=== PATIENT | male | born 1975 | race African-American/Black ===

== ENCOUNTER 2016-03-24 16:05 | Emergency (ER) | payer OTHER ==
[2016-03-24 16:09] VITALS: BP 124/66; PULSE 92; RESP 16; TEMP 101.6; O2SAT 93
[2016-03-24] MEDS ORDERED: IBUPROFEN 800 MG TAB PO ONE (18:00)
--- NOTE | 2016-03-24 18:04 | PD ---
HPI Chief Complaint: Cold / Flu Symptoms Time Seen by Provider: 18:02 Travel History International Travel<30 days: No Contact w/Intl Traveler<30days: No Traveled to known affect area: No History of Present Illness HPI Patient is a 40-year-old male who presented to return for evaluation of a cough. Patient states his symptoms started on Tuesday, he reports fatigue denies sweats. He denies any shortness of breath or wheezing, no chest pain, no nausea, vomiting, no chest congestion, no nasal congestion. He denies any other complaints at this time. He has not taken any Tylenol or ibuprofen or [id number] therapies. [facility] Past Medical History Medical History: Denies Significant Hx Family History Family History: Negative Social History Alcohol Use: No Tobacco Use: No Substance Use: No Allergies-Medications (Allergen,Severity, Reaction): Coded Allergies: No Known Allergies (Unverified , 03/24/16) Reported Meds & Prescriptions Reported Meds & Active Scripts Active No Active Prescriptions or Reported Medications Review of Systems Except as stated in HPI: all other systems reviewed are Neg General / Constitutional: Positive: Fever Respiratory: Positive: Cough, Night Sweats Physical Exam Narrative GENERAL: Well-nourished, well-developed patient. SKIN: Warm and dry. HEAD: Normocephalic. ENT: Mucosa pink and moist. No erythema or exudates. No uvular edema. No uvular , palatal, or tonsillar deviation. Airway patent. Nasal turbinates appear normal without nasal blood, purulent drainage or septal hematoma. EYES: No scleral icterus. No injection or drainage. NECK: Supple, trachea midline. No JVD or lymphadenopathy. CARDIOVASCULAR: Regular rate and rhythm without murmurs, gallops, or rubs. RESPIRATORY: Breath sounds equal bilaterally. No accessory muscle use. No wheezing, rhonchi, or rales noted. GASTROINTESTINAL: Abdomen soft, non-tender, nondistended. MUSCULOSKELETAL: No cyanosis, or edema. BACK: Nontender without obvious deformity. No CVA tenderness. Data Data Last Documented VS Vital Signs Date Time Temp Pulse Resp B/P Pulse Ox O2 Delivery O2 Flow Rate FiO2 03/24/16 16:09 101.6 92 16 124/66 93 Room Air Orders Chest, Pa & Lat (03/24/16 ) Influenzae A/B Antigen (03/24/16 17:51) Ibuprofen (Motrin) (03/24/16 18:00) MDM Medical Decision Making Medical Screen Exam Complete: Yes Emergency Medical Condition: Yes Interpretation(s) Vital Signs Date Time Temp Pulse Resp B/P Pulse Ox O2 Delivery O2 Flow Rate FiO2 03/24/16 16:09 101.6 92 16 124/66 93 Room Air Differential Diagnosis Tuberculosis versus bronchitis versus pneumonia versus viral URI versus other Narrative Course Patient is a 40-year-old male who presented to emergency for evaluation of cough. Patient states his cough started on Tuesday, he denies any other complaints including shortness of breath, wheezing, chest pain, headache. Patient presented febrile, ibuprofen was given. Chest x-ray ordered and resulted with a right upper lobe pneumonia. Patient has no risk factors, oxygen saturation on room air is 95% when reassessed. He is otherwise healthy. Patient and significant other were educated on the diagnosis. Patient appears well, nontoxic appearing, he is alert with no signs of systemic illness. It would be feasible to try outpatient antibiotic therapy at this time. They were advised to return to emergency department immediately for any new or worsening symptoms including increasing fatigue, shortness of breath, wheezing, fevers, fatigue. Patient was encouraged to complete full course of antibiotics as prescribed. He verbalized understanding of these instructions. Patient is stable for discharge. Diagnosis Primary Impression: Pneumonia Qualified Code: J18.1 - Pneumonia of right upper lobe due to infectious organism Referrals: [facility] Primary Care Physician Patient Instructions: Community Acquired Pneumonia (ED), General Instructions Additional Instructions: Complete full course of antibiotics as prescribed Take ibuprofen as needed and as directed for fevers or pain Follow-up with a primary care provider Return to emergency department immediately for any new or worsening symptoms Return to emergency department for reassessment in 48-72 hours if no improvement in symptoms. Med/Other Pt SpecificInfo: Prescription(s) given Scripts Albuterol 18 GM Inh (Ventolin Hfa 18 GM Inh)90 Mcg/Act Aer2 Puff INH Q4-6H PRN ( SHORTNESS OF BREATH) #1 INHALER Ref 0 Prov:Michelle Connolly 03/24/16 Methylprednisolone Dosepak (Medrol Dosepak)4 Mg Dspk4 Mg PO DIRECTED #1 DSPK Ref 0 Per Pharmacist direction Prov:Michelle Connolly 03/24/16 Amoxicillin 875 Mg [id number] Mg PO BID 10 Days Ref 0 Prov:Michelle Connolly 03/24/16 Azithromycin 250 Mg [id number] Mg PO DIRECTED #6 TAB Ref 0 Take 2 tabs (500 mg) on day 1 then 1 tab daily x 4 days. Prov:Michelle Connolly 03/24/16 Disposition: 01 DISCHARGE HOME Condition: Stable Michelle Connolly Mar 24, 2016 18:04
--- NOTE | 2016-03-24 18:57 | RADRPT ---
EXAM DATE/TIME: 03/24/2016 18:50 [place] COMPARISON: No previous studies available for comparison. INDICATIONS : Cough. MEDICAL HISTORY : None. SURGICAL HISTORY : None. ENCOUNTER: Initial ACUITY: 1 week PAIN SCORE: 2/10 LOCATION: chest FINDINGS: PA and lateral views of the chest demonstrate right upper lobe infiltrate. Left lung clear. The cardi omediastinal contours are unremarkable. Osseous structures are intact. CONCLUSION: Right upper lobe infiltrate. Treatment and followup recommended. Raúl Sweet MD on March 24, 2016 at 18:55 Board Certified Radiologist. This report was verified electronically.
[2016-03-24] MEDS ORDERED: VENTAER INH (19:26)
[2016-03-24] MEDS ORDERED: AMOX875T PO (19:26)
[2016-03-24] MEDS ORDERED: MEDR4PAK PO (19:26)
[2016-03-24] MEDS ORDERED: AZIT250T3 PO (19:26)
== END 2016-03-24 19:45 | disposition home or self-care (01) ==
LOC: NEPB 16:05
DX: J18.1 Lobar pneumonia, unspecified organism (principal); R53.83 Other fatigue
CPT/HCPCS: 71020; 87804; 99283